=== PATIENT | female | born 1970 | race Caucasian/White ===

== ENCOUNTER 2022-10-12 19:03 | Emergency (ER) | payer MEDICAID ==
[~2022-10-12] VITALS: Ht 157.5 cm; Wt 64.9 kg
--- NOTE | 2022-10-12 19:14 | NUR ---
BIBA BLS TO ER BED 3
[2022-10-12 19:17] VITALS: BP 150/83
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
--- NOTE | 2022-10-12 19:31 | NUR ---
DR. THIBODEAUX AT BEDSIDE FOR MSE
[2022-10-12] MEDS ORDERED: KETOROLAC 30 MG/ML VIAL IM ONE (19:40)
[2022-10-12] MEDS ORDERED: diazePAM 5 MG TAB PO ONE (19:40)
--- NOTE | 2022-10-12 19:50 | NUR ---
DR. THIBODEAUX CLEARED C COLLAR MEDICATED PT FOR PAIN
--- NOTE | 2022-10-12 19:51 | NUR ---
PT TAKEN TO XRAY
--- NOTE | 2022-10-12 20:09 | NUR ---
PT RETURN FROM XRAY
[2022-10-12] MEDS ORDERED: CYCL-711 PO (21:25)
[2022-10-12] MEDS ORDERED: NAPR-54 PO (21:25)
[2022-10-12 21:43] VITALS: BP 135/78
--- NOTE | 2022-10-12 21:44 | NUR ---
Patient discharged with v/s stable. Written and verbal after care instructions given and explained. Patient alert, oriented and verbalized understanding of instructions OF DR. THIBODEAUX. Ambulatory with steady gait. All questions addressed prior to discharge. ID band removed. Patient advised to follow up with PMD. Rx of given. Patient educated on indication of medication including possible reaction and side effects. Opportunity to ask questions provided and answered.
== END 2022-10-12 21:44 | disposition home or self-care (01) ==
LOC: MED 19:03
DX: S16.1XXA Strain of muscle, fascia and tendon at neck level, initial encounter (principal); M54.9 Dorsalgia, unspecified; R07.9 Chest pain, unspecified; Z79.899 Other long term (current) drug therapy; V49.50XA Passenger injured in collision with unspecified motor vehicles in traffic accident, initial encounter; Y93.89 Activity, other specified; Y92.89 Other specified places as the place of occurrence of the external cause; Y99.8 Other external cause status
CPT/HCPCS: 71046; 72040; 96372; 99284; J1885